=== PATIENT | female | born 1930 | race Caucasian/White ===

== ENCOUNTER 2017-07-12 12:01 | Emergency (ER) | payer MEDICARE, OTHER ==
[~2017-07-12] VITALS: Ht 162.6 cm; Wt 52.2 kg
[~2017-07-12 12:01] MED LIST: ACET325S8 PO; AMLO5 PO; BP PILL; GABA250S PO; HYDR-2768 PO; IBAN150T3 PO; POTA1080 PO; SIMV20 PO; UNKNOWN MEDICATIONS
[2017-07-12 12:15] VITALS: BP 127/58; PULSE 69; RESP 17; TEMP 96.8; O2SAT 96
--- NOTE | 2017-07-12 13:16 | PD ---
HPI . Right fifth digit pain Chief Complaint: right fifth digit pain Time Seen by Provider: 13:12 Travel History International Travel<30 days: No Contact w/Intl Traveler<30days: No History of Present Illness HPI 86-year-old female presents emergency department for evaluation of right digit pain. Patient reports she was walking in a store when she tripped on some uneven zackery causing her to fall forward onto a nearby desk. She injured the right fifth digit when she attempted to brace her fall. She did not hit the ground. There was no head injury. No loss of consciousness. Patient is not anticoagulated. Patient has pain within the right fifth digit. She has no wrist pain. She denies any other injury. Symptom severity is mild. Aggravated by flexion and extension of the finger. PFSH Past Medical History Arthritis: Yes (HANDS) Asthma: No Depression: Yes (hx of) Heart Rhythm Problems: No Cancer: No Cardiovascular Problems: Yes (htn on meds) High Cholesterol: No Chest Pain: Yes (TONIGHT) Congestive Heart Failure: No COPD: No Diminished Hearing: Yes ([place]) Endocrine: No Gastrointestinal Disorders: Yes GERD: Yes Genitourinary: No Hypertension: Yes Immune Disorder: No Musculoskeletal: Yes (BACK) Neurologic: Yes (SPINAL SURG 3 WEEKS AGO (OUT PT.)) Psychiatric: Yes (FORGETFUL) Reproductive: No Respiratory: No Migraines: No Seizures: No Ulcer: No Menopausal: Yes Past Surgical History Abdominal Surgery: No Cardiac Surgery: No Ear Surgery: No Endocrine Surgery: No Eye Surgery: No Genitourinary Surgery: No Gynecologic Surgery: Yes (PARTIAL HYSTO IN 70'S) Hysterectomy: Yes Oral Surgery: No Thoracic Surgery: No Other Surgery: Yes (lazer surgery for vertebrae fx 3 weeks) Social History Alcohol Use: Yes (OCC - GLASS WINE) Tobacco Use: No Substance Use: No Allergies-Medications (Allergen,Severity, Reaction): Coded Allergies: No Known Allergies (Unverified , 07/12/17) Reported Meds & Prescriptions Reported Meds & Active Scripts Active Reported Acetaminophen 325 Mg Tab 325 Mg PO PRN Potassium Citrate ER 10 meq 10 Meq Renny 1 Tab PO DAILY Neurontin (Gabapentin) 250 Mg/5 Ml Zohra 300 Mg PO TID Norvasc (Amlodipine Besylate) 5 Mg Tab 5 Mg PO DAILY Simvastatin 20 mg (Simvastatin) 20 Mg Tab 1 Tab PO HS Hctz (Hydrochlorothiazide) 25 Mg Tab 25 Mg PO DAILY Ibandronate Sodium 150 Mg Tab 150 Mg PO [Unknown Medications] [Bp Pill] DAILY Review of Systems Except as stated in HPI: all other systems reviewed are Neg Physical Exam Narrative GENERAL: Well-nourished, well-developed patient. SKIN: Focused skin assessment warm/dry. HEAD: Normocephalic. Atraumatic EYES: No scleral icterus. No injection or drainage. NECK: Supple, trachea midline. No JVD or lymphadenopathy. CARDIOVASCULAR: Regular rate and rhythm without murmurs, gallops, or rubs. RESPIRATORY: Breath sounds equal bilaterally. No accessory muscle use. GASTROINTESTINAL: Abdomen soft, non-tender, nondistended. MUSCULOSKELETAL: No cyanosis, or edema. Right hand: Notable tenderness, swelling, ecchymosis to the right fifth digit. No dislocation. Full range of motion. Normal sensation. Brisk cap refill. Data Data Last Documented VS Vital Signs Date Time Temp Pulse Resp B/P (MAP) Pulse Ox O2 Delivery O2 Flow Rate FiO2 07/12/17 12:15 96.8 69 17 127/58 (81) 96 Orders Orders Finger ([id number]) (07/12/17 ) [facility] Medical Decision Making Medical Screen Exam Complete: Yes Emergency Medical Condition: Yes Differential Diagnosis Finger fracture versus finger sprain versus contusion Narrative Course 86-year-old female with chief complaint of right fifth digit pain status post fall. On exam patient has notable swelling and tenderness in the right fifth digit. There is no deformity. Patient has normal sensation and full range of motion. The rest of her exam is benign. X-ray pending X-ray of the right hand reveal right fifth digit proximal phalanx fracture. Good alignment. No dislocation. Finger splint applied. Post splint application reveal normal alignment. Extremity neurovascular intact. Patient and family agree to follow-up with orthopedic/hand surgeon. Patient verbalizes understanding and agrees to plan Diagnosis Primary Impression: Phalanx, proximal fracture of finger Qualified Codes: S62.646A - Nondisplaced fracture of proximal phalanx of right little finger, initial encounter for closed fracture Referrals: Hand Surgeon Orthopedist Additional Instructions: With a splint at all times except for showering. Follow-up with the orthopedic/hand surgeon. Take [id number] Motrin and/or Tylenol as needed for pain. Ice and elevate the extremity. Return to the emergency department if he developed new or worsening symptoms Disposition: 01 DISCHARGE HOME Condition: Stable Arlette Wise Jul 12, 2017 13:16
--- NOTE | 2017-07-12 13:34 | RADRPT ---
EXAM DATE/TIME: 07/12/2017 13:13 [place] COMPARISON: No previous studies available for comparison. INDICATIONS : Fell and landed on right hand. Pain in fifth digit middle interphalangeal jt. MEDICAL HISTORY : None. SURGICAL HISTORY : None. ENCOUNTER: Initial ACUITY: 1 day PAIN SCORE: 7/10 LOCATION: Right Hand, 5th digit. FINDINGS: There is diffuse osteopenia with a hairline fracture of the fifth proximal phalanx towards the distal aspect. 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 CONCLUSION: Nondisplaced fracture of fifth proximal phalanx. Radha Mirza MD on July 12, 2017 at 13:26 Board Certified Radiologist. This report was verified electronically.
== END 2017-07-12 14:04 | disposition home or self-care (01) ==
LOC: PHEFT 12:01
DX: S62.646A Nondisplaced fracture of proximal phalanx of right little finger, initial encounter for closed fracture (principal); W01.190A Fall on same level from slipping, tripping and stumbling with subsequent striking against furniture, initial encounter; Y92.512 Supermarket, store or market as the place of occurrence of the external cause; H91.90 Unspecified hearing loss, unspecified ear; I10 Essential (primary) hypertension; K21.9 Gastro-esophageal reflux disease without esophagitis; M19.90 Unspecified osteoarthritis, unspecified site
CPT/HCPCS: 29130; 73140